=== PATIENT | female | born 1990 | race Caucasian/White ===

== ENCOUNTER 2019-04-03 11:36 | Emergency (ER) | payer OTHER, MEDICARE, MEDICAID, SELFPAY ==
--- NOTE | 2019-04-03 11:49 | ED.GENADULT ---
HPI - General Adult General Chief complaint: Upper Respiratory Infection Stated complaint: Chest congestion/Sore throat Time Seen by Provider: 04/03/19 12:05 Source: patient Mode of arrival: ambulatory Limitations: no limitations History of Present Illness HPI narrative: 28-year-old female patient presents to the [facility] with complaints of cold symptoms for the past 4 days. Patient states she has had some runny nose, stuffy nose with green drainage, cough with green sputum production, sore throat. Patient states that time she does have chest pain shortness of breath with the coughing. Patient denies any abdominal pain but states she has had some nausea and vomiting and her last vomiting episode was yesterday. Patient states she was able to eat breakfast and take her medicine this morning keep everything down. Patient states she has felt feverish but denies taking her temperature. Patient denies taking anything for her symptoms. Patient states she did get a flu shot this year. 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 Related Data Home Medications Medication Instructions Recorded Confirmed amlodipine 10 mg PO DAILY 04/03/19 04/03/19 citalopram 40 mg PO DAILY 04/03/19 04/03/19 levonorgestrel-ethinyl estrad 1 tablet PO DAILY 04/03/19 04/03/19 [Frandy (28)] Allergies Allergy/AdvReac Type Severity Reaction Status Date / Time No Known Allergies Allergy Verified 04/03/19 12:19 Review of Systems Review of Systems: Narrative: CONSTITUTIONAL: Positive subjective fever, chills, body aches and sweats. EYES: Denies visual changes, redness, or discharge. ENT: Positive rhinorrhea, congestion, sore throat, denies otalgia. CARDIOVASCULAR: Positive chest pain with cough, denies palpitations, or edema. RESPIRATORY: Positive cough with dyspnea at times. GASTROINTESTINAL: Denies abdominal pain, positive nausea, vomiting,, denies diarrhea. GENITOURINARY: Denies dysuria or hematuria. SKIN: Denies rash or itching. MUSCULOSKELETAL: Denies back pain, joint pain, or myalgia. NEUROLOGIC: Denies headache, numbness, or weakness. PSYCHIATRIC: Denies anxiety or depression. 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 There is no relevant family history pertinent to the presenting complaint. Exam Narrative: Exam Narrative: GENERAL: Well-appearing, well-nourished, and in no acute distress. HEAD: Normocephalic, atraumatic. Tenderness noted to maxillary sinuses on palpation. EYES: PERRLA and EOMI. ENT: Nares with erythema and edema noted bilaterally, no rhinorrhea or epistaxis. Mucous membranes moist. Posterior pharynx with some erythema but no tonsil enlargement no exudates or lesions present. NECK: Supple. No lymphadenopathy CHEST: Clear to auscultation. No respiratory distress. Patient able talk in clear complete sentences. No tripoding noted. HEART: Regular rate and rhythm. No murmur heard. Normal peripheral pulses. ABDOMEN: Soft, nontender, nondistended, normal active bowel sounds. EXTREMITIES: Normal range of motion. No edema. SKIN: Warm, dry, no rash. NEURO: No focal deficits. Alert and oriented x3. Course Reevaluation(s) Reevaluation #1: Notify patient that she is negative today for influenza and strep. Discussed with patient she most likely has some type of viral syndrome that will take some time to run its course. Discussed with patient she can use [id number] medication such as Zyrtec, Dayanna, Flonase and [id number] cough suppressants. Discussed with patient if she has worsening symptoms s
[2019-04-03 11:55] VITALS: BP 143/93; PULSE 99; RESP 16; TEMP 37.2; O2SAT 97
[2019-04-03 12:20] VITALS: BP 130/90
== END 2019-04-03 12:25 | disposition home or self-care (01) ==
PROVIDERS: Emergency Provider Nurse Practitioner Family
DX: J06.9 Acute upper respiratory infection, unspecified (principal)
CPT/HCPCS: 87081; 87804; 87880; 99213; G0463